=== PATIENT | female | born 2000 | race African-American/Black ===

== ENCOUNTER 2021-09-21 19:19 | Emergency (ER) | payer OTHER ==
[~2021-09-21] VITALS: Ht 160 cm; Wt 67.3 kg
[2021-09-21 19:20] VITALS: BP 117/70
[2021-09-21] MEDS ORDERED: ORTH1TAB8 PO (19:39)
[2021-09-21 21:42] LABS: RSV AMPLIFICATION NEGATIVE (NEGATIVE)
[2021-09-21] MEDS ORDERED: AMOX500C PO (21:59)
[2021-09-21] MEDS ORDERED: AMOXICILLIN 500 MG CAP PO ONE (22:05)
== END 2021-09-21 22:23 | disposition home or self-care (01) ==
LOC: M ED 19:19
DX: J02.0 Streptococcal pharyngitis (principal); Z79.3 Long term (current) use of hormonal contraceptives